=== PATIENT | female | born 1965 | race Caucasian/White ===

== ENCOUNTER 2016-09-13 06:54 | Day surgery (SDC) | payer BC ==
[2016-09-13] MEDS ORDERED: Propofol 200 MG/20 ML SDV ONE (07:04)
[2016-09-13] MEDS ORDERED: Midazolam 1 MG/ML 2 ML SDV ONE (07:04)
[2016-09-13] MEDS ORDERED: fentaNYL 100 MCG/2 ML SDV ONE (07:04)
[2016-09-13] MEDS ORDERED: Sodium Chloride 0.9% 1,000 ML IV SCH (07:30)
[2016-09-13 09:33] VITALS: BP 105/76
--- NOTE | 2016-09-13 10:26 | OR ---
DATE OF PROCEDURE: 09/13/2016 PROCEDURE: Colonoscopy. FINDINGS: A very small (approximately 1 to 2 mm type) polyps noted in the cecum, biopsied for evaluation. Total amount approximately 20. COMPLICATIONS: None. ASSISTANTS: None. ANESTHESIA: MAC. RISKS: Risks, benefits, alternatives, and limitations including, but not limited to infection, bleeding, and perforation. The patient understands these risks and wishes to proceed. PROCEDURE IN DETAIL: The patient was placed in left lateral decubitus position. Digital rectal exam was performed without abnormalities. The scope was introduced and advanced atraumatically to the ileocecal valve. In the cecum itself, the patient had 3 small polyps approximate 1 mm in size. These were most likely hyperplastic polyps. There were a total of around 20 and about 5 were removed for biopsy sampling purposes. No other abnormalities were noted. No diverticulosis. No old or new blood. No masses. The patient tolerated the procedure well. Damion Beck MD /[id number]
== END 2016-09-13 10:24 | disposition home or self-care (01) ==
LOC: JP.SDS 06:54
PROVIDERS: ATTEND Surgery
DX: Z12.11 Encounter for screening for malignant neoplasm of colon (principal); D12.0 Benign neoplasm of cecum; E03.9 Hypothyroidism, unspecified
CPT/HCPCS: 45380; J2250; J2704; J3010; J7040; 88305

== ENCOUNTER 2017-06-28 08:14 | Day surgery (SDC) | payer BC ==
[2017-06-28] MEDS ORDERED: Sodium Chloride 0.9% 1,000 ML IV SCH (08:15)
[2017-06-28] MEDS ORDERED: Midazolam 1 MG/ML 2 ML SDV ONE (10:39)
[2017-06-28] MEDS ORDERED: fentaNYL 100 MCG/2 ML SDV ONE (10:39)
[2017-06-28] MEDS ORDERED: Propofol 200 MG/20 ML SDV ONE ×2 (10:39→11:16)
[2017-06-28 12:49] VITALS: BP 112/57
--- NOTE | 2017-06-28 13:20 | OR ---
DATE OF PROCEDURE: 06/28/2017 PROCEDURE: Colonoscopy. FINDINGS: Sigmoid colon polyp, approximately 5 mm, completely removed using cold biopsy forceps. COMPLICATIONS: None. WEED THINNER: None. ANESTHESIA: MAC. PREOPERATIVE DIAGNOSIS: Screening colonoscopy. POSTOPERATIVE DIAGNOSIS: Screening colonoscopy. RISKS: Risks, benefits, alternatives, and limitations including, but not limited to infection, bleeding, and perforation were explained to the patient, who wished to proceed. PROCEDURE IN DETAIL: The patient was placed in left lateral decubitus position. A digital rectal exam was performed without abnormality. The scope was introduced and advanced atraumatically to the ileocecal valve. The scope was brought back to the ascending, transverse, descending colon, and retroflexed. In the sigmoid colon, the aforementioned polyp was identified and completely removed. No other abnormalities on retroflex. The patient tolerated the procedure well. Damion Beck MD /[id number]
== END 2017-06-28 12:35 | disposition home or self-care (01) ==
LOC: JP.SDS 08:14
PROVIDERS: ATTEND Surgery
DX: Z12.11 Encounter for screening for malignant neoplasm of colon (principal); D12.5 Benign neoplasm of sigmoid colon; I73.00 Raynaud's syndrome without gangrene; D64.9 Anemia, unspecified; E05.90 Thyrotoxicosis, unspecified without thyrotoxic crisis or storm
CPT/HCPCS: 45380; 88305; J2250; J2704; J3010; J7040

== ENCOUNTER 2020-11-25 08:28 | Day surgery (SDC) | payer BC ==
[~2020-11-25 08:28] MED LIST: Midazolam 1 MG/ML 2 ML SDV ONE; Propofol 200 MG/20 ML SDV ONE; fentaNYL 100 MCG/2 ML SDV ONE
[2020-11-25] MEDS ORDERED: Sodium Chloride 0.9% 1,000 ML IV SCH (09:00)
[2020-11-25 11:49] VITALS: BP 103/74; PULSE 48
--- NOTE | 2020-11-25 11:49 | OR ---
DATE OF PROCEDURE: 11/25/2020 SURGEON: Damion Beck MD PROCEDURE: Colonoscopy. FINDINGS: Transverse colon polyp, approximately 5 mm, completely removed using cold biopsy forceps. COMPLICATIONS: None. WELDER BOILERMAKER: None. PREOPERATIVE DIAGNOSIS: Screening colonoscopy. POSTOPERATIVE DIAGNOSIS: Screening colonoscopy. RISKS: Risks, benefits, alternatives, and limitations including, but not limited to infection, bleeding, perforation, false positives, false negatives were explained to the patient and she wished to proceed. PROCEDURE IN DETAIL: The patient was placed in left lateral decubitus position. Digital rectal exam was performed without abnormality. Scope was introduced and advanced atraumatically to the ileocecal valve. A photo was taken of the appendiceal orifice. Scope was brought back to the ascending, transverse, descending colon, and retroflexed. No evidence of old or new blood. No masses. No colitis. No diverticulosis. The aforementioned polyp was identified and completely removed. No abnormalities on retroflexion. Greater than 8 minutes was spent removing the scope. The prep was acceptable, approximately 90% of the luminal surface could be seen. The patient tolerated the procedure well. Damion Beck MD /[id number]
== END 2020-11-25 11:59 | disposition home or self-care (01) ==
LOC: JP.SDS 08:28
PROVIDERS: ATTEND Surgery
DX: Z12.11 Encounter for screening for malignant neoplasm of colon (principal); D12.3 Benign neoplasm of transverse colon
CPT/HCPCS: 45380; J2250; J2704; J3010; J7030

== ENCOUNTER 2024-10-01 09:34 | Day surgery (SDC) | payer OTHER ==
[2024-10-01] MEDS: Lactated Ringers 1,000 ML IV SCH (10:30)
[2024-10-01] MEDS ORDERED: Propofol 200 MG/20 ML SDV ONE (10:54)
[2024-10-01] MEDS ORDERED: Midazolam 1 MG/ML 2 ML SDV ONE (10:54)
[2024-10-01] MEDS ORDERED: fentaNYL 100 MCG/2 ML SDV ONE (10:54)
[2024-10-01 13:43] VITALS: BP 119/74; PULSE 61
== END 2024-10-01 13:45 | disposition home or self-care (01) ==
LOC: JP.SDS 09:34
PROVIDERS: ATTEND Surgery
DX: Z12.11 Encounter for screening for malignant neoplasm of colon (principal); Z88.8 Allergy status to other drugs, medicaments and biological substances
CPT/HCPCS: 45378; J2250; J2704; J3010; J7120; 00812-QZ